=== PATIENT | female | born 1995 | race Caucasian/White ===

== ENCOUNTER → 2018-09-16 | Outpatient (REF) | payer OTHER | LOC: M LAB REF 19:07 | PROVIDERS: ATTEND Physician Assistant | DX: J02.9 Acute pharyngitis, unspecified (principal) ==

== ENCOUNTER 2018-10-05 16:19 | Emergency (ER) | payer OTHER ==
[~2018-10-05] VITALS: Ht 170.2 cm; Wt 70.9 kg
[2018-10-05] MEDS ORDERED: SUBO8MIS SL (16:27)
[2018-10-05 17:16] LABS: HEMATOCRIT 38.2 % (36.0-47.0); HEMOGLOBIN 12.8 g/dl (12.0-15.5); MEAN CORPUSCULAR HEMOGLOBIN 30.3 pg (27.0-33.0); MEAN CORPUSCULAR HGB CONC 33.5 g/dl (32.0-36.5); MEAN CORPUSCULAR VOLUME 90.3 fl (80.0-96.0); PLATELET COUNT, AUTOMATED 176 10^3/uL (150-450); RED BLOOD COUNT 4.23 10^6/uL (4.00-5.40); WHITE BLOOD COUNT 7.7 10^3/uL (4.0-10.0)
--- NOTE | 2018-10-05 20:29 | REPVR ---
EXAM: US First Trimester, Transabdominal and US , Transvaginal EXAM DATE/TIME: 10/05/2018 6:55 PM CLINICAL HISTORY: 23 years old, female; Lmp or gestational age (in weeks): 6; Other: Vag bleeding; ; Additional info: Vaginal bleeding in early TECHNIQUE: Imaging protocol: Real-time transabdominal obstetrical ultrasound of the maternal pelvis and a first trimester , less than 14 weeks 0 days, with image documentation. Transvaginal imaging was used for better evaluation of the fetus and adnexa. COMPARISON: No relevant prior studies available. FINDINGS: GESTATION: Gestation: No intrauterine is seen. No intrauterine gestational sac. BIOMETRY: LMP: 05/19/2018. EGA by LMP: 6 weeks 5 days. MATERNAL: Uterus: 8.9 x 4.9 x 6.4 cm. There is no intrauterine gestational sac. The endometrium is thickened and irregular, and there is clot in the lower uterine segment and cervix. The endometrium is 2.35 cm. The clot in the cervix is 1.6 cm (image 36). Right adnexa: The right ovary is normal in size. It is 2.5 x 1.3 x 2.9 cm. A paraovarian cyst is a 1.6 x 0.9 x 0.8 cm (image 56). Left adnexa: The left ovary is normal in size. It is 2.6 x 2.0 x 1.6 cm. A corpus luteal cyst with a vascularized thick wall is 2.0 x 1.6 cm (image 46). Intraperitoneal: No intraperitoneal free fluid. IMPRESSION: Probable miscarriage in process. Electronically signed by: Robert Lees On 10/05/2018 20:29:28 PM
[2018-10-05 21:08] VITALS: BP 99/58
[2018-10-05] MEDS ORDERED: RHOGAM 300 MCG (1500 IU) INJ (J2790) IM ONE (21:15)
[2018-10-05] MEDS ORDERED: CYTO1TAB PV (21:16)
== END 2018-10-05 22:11 | disposition home or self-care (01) ==
LOC: M ED 16:19
DX: O20.0 Threatened abortion (principal); Z87.59 Personal history of other complications of pregnancy, childbirth and the puerperium; Z3A.01 Less than 8 weeks gestation of pregnancy; Z79.899 Other long term (current) drug therapy
CPT/HCPCS: 76801; 76817; 84702; 85027; 86850; 86900; 86901; 93976; 96372; 99283; J2790

== ENCOUNTER → 2020-03-08 | Outpatient (CLI) | payer SELFPAY ==
[~2020-03-08] MED LIST: CYTO200T PV; SUBO8MIS SL
== END ==
LOC: M LABSMTC 11:36
PROVIDERS: ATTEND Pediatrics
DX: Z20.828 Contact with and (suspected) exposure to other viral communicable diseases (principal)